=== PATIENT | female | born 1960 | race Caucasian/White ===

== ENCOUNTER 2020-12-13 13:18 | Outpatient (RCR) | payer BC, SELFPAY | END 2021-01-26 23:59 | LOC: IMMUN 13:18 | PROVIDERS: PCP Nurse Practitioner Adult Health; Visit Provider Family Medicine | DX: Z23 Encounter for immunization (principal) | CPT/HCPCS: 0001A; 91300 ==

== ENCOUNTER 2023-04-18 05:51 | Day surgery (SDC) | payer BC, SELFPAY ==
[2023-04-18] VITALS (17 sets, daily range): BP systolic 77–108; BP diastolic 42–77; PULSE 61–97; RESP 14–18; TEMP 35.5–36.6; O2SAT 90–97; BMI 26.7
[2023-04-18] MEDS: Lactated Ringers 1,000 ML 15 ML IV ×2 (06:27→16:02)
--- NOTE | 2023-04-18 07:00 | PCM.HP.BLA ---
History and Physical Date of Admission: 04/18/23 Interim Note: Pt examined. There are no changes to the exam of 03/26/23. Pt with macromastia--for bilateral breast reduction. Informed consent obtained. Assessment & Plan Assessment/Plan (1) Chronic back pain: (2) Macromastia: PLAN: Plan For bilateral breast reduction.
--- NOTE | 2023-04-18 07:30 | BR_PTH ---
PATIENT: ROD MANN [place] [facility] [place][id number] AGE/SX: 63/F ROOM: RE04/18/[address]: Dr. Allyn Molina MD : [id number] BED: DIS: 04/18/2023 SPEC #: [id number] RECD: 04/18/23 13:19 STATUS: JAMES REJed #: [id number] DAMIEN: 04/18/23 07:[address]: Allyn Molina DEPT: SURGICAL PATHOLOGY RECD BY: Nikki Mata ENTERED: 04/21/23 07:33 SP TYPE: MAMOPLASTY OTHR DR: TAMMY Yi Tissues: A - Right breast, NOS B - Left breast, NOS Procedures: Surgery Specimen Level IV HEADER OPERATION: Breast reduction PRE-OP DIAGNOSIS: Chronic back pain, macromastia TISSUE SUBMITTED: A - Right breast tissue 422 gm, B - Left breast tissue 420 gm MICROSCOPIC DIAGNOSIS A. Right breast, reduction mammoplasty: Fibrocystic change. Rare banal microcalcifications. Skin with no pathologic change. B. Left breast, reduction mammoplasty: Fibrocystic change. Rare banal microcalcifications. Skin with no pathologic change. AM:taylor 04/22/2023 MICROSCOPIC DESCRIPTION Slides are reviewed. GROSS DESCRIPTION A - Received in fixative is one container labeled with the patient's name and designated right breast tissue. The specimen consists of multiple pieces of fibroadipose tissue with a few of the pieces showing hermosillo-white skin, weighing in aggregate 422 gm (weighed in OR) and measuring in aggregate 22.0 x 17.0 x 5.0 cm. No skin lesion is identified. Sections reveal yellow adipose cut surfaces mixed with scant fibrous areas. No mass lesion is identified. [employer] M[employer] sections are submitted in six cassettes. Cassette 1 contains the skin piece. B - Received in fixative is one container labeled with the patient's name and designated left breast tissue. The specimen consists of multiple pieces of fibroadipose tissue with a few of the pieces showing hermosillo-white skin, weighing in aggregate 420 gm (weighed in OR) and measuring in aggregate 22.0 x 17.0 x 5.0 cm. No skin lesion is identified. Sections reveal yellow adipose cut surfaces mixed with scant fibrous areas. No mass lesion is identified. To[employer] M[employer] sections are submitted in six cassettes. Cassette 1 contains the skin piece. / SJ:taylor 04/21/2023 TC:5 [facility]: [id number] x2
[2023-04-18] MEDS: Cefazolin 2 GM in 0.9% Normal Saline (100mL Bag) 100 ML IV (07:35)
[2023-04-18] MEDS: Gentamicin 80 MG/2 ML Vial (08:23)
[2023-04-18] MEDS: Epinephrine (1 mg/ml) 1 MG/ML VIAL (08:23)
[2023-04-18] MEDS: Bupivacaine 0.25% 30 ML Vial (12:55)
--- NOTE | 2023-04-18 13:13 | DCINST_ITS ---
Discharge Instructions Diet Discharge Diet: No restrictions Activity Additional Activity Instructions:: Keep back elevated. Follow the instructions given in the office. Dressing / Incision Additional Dressing/Incision Instructions:: Leave bra and dressing in place until seen in the office. Follow Up Care Please Follow Up With: Allyn Molina MD When: as scheduled Test Results: Test results from this visit will be discussed in further detail at your follow- up appointment, if applicable. Discharge Plan Admission Attending Provider: Allyn Molina Primary Care Provider: Dottie Cao NP Discharge Orders/Prescriptions Prescriptions: No Action lisinopril 20 mg tablet 20 mg PO DAILY atorvastatin 20 mg tablet 20 mg PO DAILY levothyroxine 50 mcg tablet 75 mcg PO DAILY cephalexin 500 mg capsule 500 mg PO BID Qty: 14 0RF Patient Comments: STARTING DAY BEFORE SURGERY Referrals / Follow Up: Dottie Cao NP, [facility] [employer] [facility] [Primary Care Provider] - Disposition Disposition (needs filled in before D/C Order can be placed): Home, Self Care
--- NOTE | 2023-04-18 13:15 | PCM.OPRPT ---
Problems Associated Problem List Diagnoses (1) Macromastia: (2) Chronic back pain: Report of Operation Date of Procedure: 04/18/23 Pre-Operative Diagnosis: Bilateral macromastia, chronic neck and back pain Post-Operative Diagnosis: Same Surgery/Procedure Performed:: Bilateral breast reduction (right?422 g; left?420 g) Surgeon: Allyn Molina plywood layup line back feeder: ANAM SILVAdirector of plant operations Type of Anesthesia: General Drains: none Estimated Blood Loss (mL): <50cc Description of Procedure: The procedure bilateral breast reduction been thoroughly reviewed with the patient. Informed consent had been obtained. She is marked in the preop holding area prior to surgery. No guarantees as to the final size is made. The patient was brought to the operating room and placed under general anesthesia in the supine position. Care is taken to pad all pressure points, apply sequential compression stockings, a Rees catheter, and a warming blanket. The breast and chest are prepped and draped in the usual sterile fashion. We initially began with incising all the incisions. Following this, the pedicle was de-epithelialized. The medial and lateral inferior aspects of the breast are removed utilizing argon coagulation. Following this, the pedicle is from the upper flap. Dissection then continued cephalad maintaining the upper flap at least 2 cm in thickness. The pedicle is then trimmed in order to allow it to comfortably fit beneath the upper flap. The wound is thoroughly irrigated with antibiotic solution and checked for hemostasis which is controlled with cautery. Following this, the breast is infolded and tacked together using silk suture and skin clips. When an appropriate size and shape is noted, we began closing the incision. The incisions are closed in 3 layers using V-Loc sutures. Skin edges are approximated in a subcuticular fashion. All tissue was passed off the operative field to be weighed and sent to pathology. The identical procedure was performed on the opposite side. Approximately 5 cm from the inframammary crease, an opening is made for the nipple areola and the nipple brought out through this opening. It is tacked in position with nylon sutures. Skin edges are approximated in a subcuticular fashion. Quarter percent Marcaine is injected along the incisions. Xeroform gauze is placed on the incisions along with fluff gauze and she is placed in a surgery bra. She tolerated the procedure well and was taken to the recovery area in an awakening in stable condition. Needle and sponge counts are correct. Complications None Admit VTE Documentation VTE Mechan Device Prophylaxis: SCD's
== END 2023-04-18 20:08 | disposition home or self-care (01) ==
LOC: SDC 05:54 → AC 05:55
PROVIDERS: PCP Nurse Practitioner Adult Health; Referring Provider Plastic Surgery; Visit Provider Plastic Surgery
PROC: 0H0U0ZZ Alteration of Left Breast, Open Approach (ICD-10-PCS; CPT 19318; principal; 2023-04-18 07:15)
DX: N62 Hypertrophy of breast (principal); G89.29 Other chronic pain; M54.9 Dorsalgia, unspecified; M54.2 Cervicalgia; Z90.710 Acquired absence of both cervix and uterus; E07.9 Disorder of thyroid, unspecified; I10 Essential (primary) hypertension; E78.00 Pure hypercholesterolemia, unspecified
CPT/HCPCS: 19318; 00402; 88305; J7120; J2405; Q9968